=== PATIENT | female | born 1960 | race Caucasian/White ===

== ENCOUNTER → 2020-04-03 | Outpatient (CLI) | payer OTHER ==
--- NOTE | 2020-04-05 16:22 | US ---
US THYROID CLINICAL STATEMENT:59 years Female Thyroid nodule. No palpable mass, no prior medical or surgical treatment COMPARISON: None TECHNIQUE: Transcutaneous scanning, grayscale and Doppler modes. FINDINGS: Size right thyroid lobe: 4.8 x 1.9 x 1.1 cm Size left thyroid lobe: 4.8 x 2.2 x 1.6 cm Size isthmus: 0.22 cm Estimated total number of nodules greater than or equal to 1 cm: None. Nodule 1: Size: 0.3 x 0.3 x 0.2 cm Location: Left Mid Composition: spongiform: 0 points Echogenicity: hypoechoic: 2 points Shape: wider than tall: 0 points Margins: smooth: 0 points Echogenic foci: 9 ACR Total Points: 2; ACR TI-RADS risk category: TR2 - nonsuspicious nodule. Soft tissue in the thyroid gland shows no dominant solid mass, no distinct cysts, no fluid collection, no large calcifications. IMPRESSION: 1. Nodule 1: ACR TI-RADS 2017 Category TR2. Recommend: Follow-up ultrasound in 1 year.. Recommendations based upon [facility] recommendations and ACR TI-RADS 2017 guidelines. Please see below*. 2. Soft tissue in the thyroid gland is unremarkable. *ACR TI-RADS 2017 Recommendations for imaging follow-up of nodules (baseline study): TR1: No FNA or follow up TR2: No FNA or follow up TR3: FNA if >/= 2.5 cm, follow up if 1.5 - 2.4 cm in 1, 3, and 5 years TR4: FNA if >/= 1.5 cm, follow up if 1.0 - 1.4 cm in 1, 2, 3, and 5 years TR5: FNA if >/= 1.0 cm, follow up if 0.5 - 0.9 cm every year for 5 years ACR TI-RADS recommends that no more than two nodules with the highest ACR TI-RADS total point should be biopsied and no more than four nodules should be followed. These recommendations do not apply to patients with increased risk for thyroid cancer or patients with symptomatic thyroid disease. Electronically signed by: Arik Wiseman MD 04/05/2020 4:21 PM CDT
== END ==
LOC: US 13:28
PROVIDERS: ATTEND Family Medicine
DX: E04.1 Nontoxic single thyroid nodule (principal)